=== PATIENT | female | born 1950 | race Caucasian/White ===

== ENCOUNTER 2023-10-30 07:53 | Outpatient (CLI) | payer MEDICARE, BC, SELFPAY | END 2023-10-30 07:54 | disposition home or self-care (01) | PROVIDERS: Visit Provider Surgery | DX: I87.333 Chronic venous hypertension (idiopathic) with ulcer and inflammation of bilateral lower extremity (principal); I89.0 Lymphedema, not elsewhere classified; L97.821 Non-pressure chronic ulcer of other part of left lower leg limited to breakdown of skin; L97.811 Non-pressure chronic ulcer of other part of right lower leg limited to breakdown of skin; C94.6 Myelodysplastic disease, not elsewhere classified | CPT/HCPCS: G0463 ==

== ENCOUNTER 2023-11-06 08:46 | Outpatient (CLI) | payer MEDICARE, BC, SELFPAY | END 2023-11-06 08:47 | disposition home or self-care (01) | LOC: WOUND 08:46 | PROVIDERS: Visit Provider Surgery | DX: I87.333 Chronic venous hypertension (idiopathic) with ulcer and inflammation of bilateral lower extremity (principal); I89.0 Lymphedema, not elsewhere classified; L97.811 Non-pressure chronic ulcer of other part of right lower leg limited to breakdown of skin; L97.821 Non-pressure chronic ulcer of other part of left lower leg limited to breakdown of skin | CPT/HCPCS: 97597 ==

== ENCOUNTER 2023-11-14 14:11 | Outpatient (CLI) | payer MEDICARE, BC, SELFPAY | END 2023-11-14 14:12 | disposition home or self-care (01) | LOC: WOUND 14:12 | PROVIDERS: Visit Provider Nurse Practitioner Family | DX: I87.333 Chronic venous hypertension (idiopathic) with ulcer and inflammation of bilateral lower extremity (principal); I89.0 Lymphedema, not elsewhere classified; L97.821 Non-pressure chronic ulcer of other part of left lower leg limited to breakdown of skin; L97.811 Non-pressure chronic ulcer of other part of right lower leg limited to breakdown of skin; C94.6 Myelodysplastic disease, not elsewhere classified | CPT/HCPCS: 97597 ==

== ENCOUNTER 2023-11-20 09:37 | Outpatient (CLI) | payer MEDICARE, BC, SELFPAY | END 2023-11-20 09:38 | disposition home or self-care (01) | LOC: WOUND 09:37 | PROVIDERS: Visit Provider Surgery | DX: I87.333 Chronic venous hypertension (idiopathic) with ulcer and inflammation of bilateral lower extremity (principal); I89.0 Lymphedema, not elsewhere classified; L97.828 Non-pressure chronic ulcer of other part of left lower leg with other specified severity; L97.812 Non-pressure chronic ulcer of other part of right lower leg with fat layer exposed | CPT/HCPCS: G0463 ==

== ENCOUNTER 2023-11-22 11:32 | Outpatient (CLI) | payer MEDICARE, BC, SELFPAY | END 2023-11-22 11:33 | disposition home or self-care (01) | LOC: WOUND 11:32 | PROVIDERS: Visit Provider Nurse Practitioner Family | DX: I87.332 Chronic venous hypertension (idiopathic) with ulcer and inflammation of left lower extremity (principal); I89.0 Lymphedema, not elsewhere classified; L97.828 Non-pressure chronic ulcer of other part of left lower leg with other specified severity | CPT/HCPCS: 29581 ==

== ENCOUNTER 2023-11-27 07:49 | Outpatient (CLI) | payer MEDICARE, BC, SELFPAY | END 2023-11-27 07:50 | disposition home or self-care (01) | LOC: WOUND 07:49 | PROVIDERS: Visit Provider Surgery | DX: I87.333 Chronic venous hypertension (idiopathic) with ulcer and inflammation of bilateral lower extremity (principal); I89.0 Lymphedema, not elsewhere classified; L97.828 Non-pressure chronic ulcer of other part of left lower leg with other specified severity; L97.812 Non-pressure chronic ulcer of other part of right lower leg with fat layer exposed | CPT/HCPCS: 97597 ==

== ENCOUNTER 2023-11-29 14:01 | Outpatient (CLI) | payer MEDICARE, BC, SELFPAY | END 2023-11-29 14:02 | disposition home or self-care (01) | LOC: WOUND 14:01 | PROVIDERS: Visit Provider Surgery | DX: I87.333 Chronic venous hypertension (idiopathic) with ulcer and inflammation of bilateral lower extremity (principal); I89.0 Lymphedema, not elsewhere classified; L97.812 Non-pressure chronic ulcer of other part of right lower leg with fat layer exposed; L97.822 Non-pressure chronic ulcer of other part of left lower leg with fat layer exposed | CPT/HCPCS: 29581 ==

== ENCOUNTER 2023-12-04 09:48 | Outpatient (CLI) | payer MEDICARE, BC, SELFPAY | END 2023-12-04 09:49 | disposition home or self-care (01) | LOC: WOUND 09:49 | PROVIDERS: Visit Provider Surgery | DX: I87.313 Chronic venous hypertension (idiopathic) with ulcer of bilateral lower extremity (principal); I89.0 Lymphedema, not elsewhere classified; L97.818 Non-pressure chronic ulcer of other part of right lower leg with other specified severity; L97.822 Non-pressure chronic ulcer of other part of left lower leg with fat layer exposed | CPT/HCPCS: G0463 ==

== ENCOUNTER 2023-12-11 09:24 | Outpatient (CLI) | payer MEDICARE, BC, SELFPAY | END 2023-12-11 09:25 | disposition home or self-care (01) | LOC: WOUND 09:25 | PROVIDERS: Visit Provider Surgery | DX: I89.0 Lymphedema, not elsewhere classified (principal); L97.828 Non-pressure chronic ulcer of other part of left lower leg with other specified severity; C94.6 Myelodysplastic disease, not elsewhere classified | CPT/HCPCS: G0463 ==

== ENCOUNTER 2023-12-18 09:24 | Outpatient (CLI) | payer MEDICARE, BC, SELFPAY | END 2023-12-18 09:25 | disposition home or self-care (01) | LOC: WOUND 09:25 | PROVIDERS: Visit Provider Surgery | DX: I87.333 Chronic venous hypertension (idiopathic) with ulcer and inflammation of bilateral lower extremity (principal); I89.0 Lymphedema, not elsewhere classified; L97.822 Non-pressure chronic ulcer of other part of left lower leg with fat layer exposed | CPT/HCPCS: 97597 ==

== ENCOUNTER 2023-12-25 09:09 | Outpatient (CLI) | payer MEDICARE, BC, SELFPAY | END 2023-12-25 09:10 | disposition home or self-care (01) | LOC: WOUND 09:10 | PROVIDERS: Visit Provider Surgery | DX: I87.312 Chronic venous hypertension (idiopathic) with ulcer of left lower extremity (principal); I89.0 Lymphedema, not elsewhere classified; L97.821 Non-pressure chronic ulcer of other part of left lower leg limited to breakdown of skin | CPT/HCPCS: 97597 ==

== ENCOUNTER 2024-01-01 09:19 | Outpatient (CLI) | payer MEDICARE, BC, SELFPAY | END 2024-01-01 09:20 | disposition home or self-care (01) | LOC: WOUND 09:19 | PROVIDERS: Visit Provider Surgery | DX: I87.312 Chronic venous hypertension (idiopathic) with ulcer of left lower extremity (principal); I89.0 Lymphedema, not elsewhere classified; L97.828 Non-pressure chronic ulcer of other part of left lower leg with other specified severity | CPT/HCPCS: G0463 ==

== ENCOUNTER 2024-01-08 09:18 | Outpatient (CLI) | payer MEDICARE, BC, SELFPAY | END 2024-01-08 09:19 | disposition home or self-care (01) | LOC: WOUND 09:18 | PROVIDERS: Visit Provider Surgery | DX: I89.0 Lymphedema, not elsewhere classified (principal); C94.6 Myelodysplastic disease, not elsewhere classified | CPT/HCPCS: G0463 ==